=== PATIENT | male | born 1985 | race African-American/Black ===

== ENCOUNTER 2020-11-06 14:16 | Inpatient (IN) | payer OTHER ==
[2020-11-06 16:13] VITALS: BMI 23.9
[2020-11-06] MEDS ORDERED: BISMUTH SUBSALICYLATE 524 MG/30 ML UD PO PRN (19:19)
[2020-11-06] MEDS ORDERED: IBUPROFEN 400 MG TABLET (FP) PO PRN (19:19)
[2020-11-06] MEDS ORDERED: ACETAMINOPHEN 325 MG TABLET (FP) PO PRN ×2 (19:19)
[2020-11-06] MEDS ORDERED: NICOTINE POLACRILEX 2 MG GUM BUC PRN (19:19)
[2020-11-06] MEDS ORDERED: MENTHOL/PHENOL 1 EACH UD MM PRN (19:19)
[2020-11-06] MEDS ORDERED: MAGNESIUM HYDROX 2400MG/30ML ORAL SUSPENSION 30 ML CUP PO PRN (19:19)
[2020-11-06] MEDS ORDERED: MAG HYDROX/AL HYDROX/SIMETH 30 ML UNIT-DOSE CUP PO PRN (19:19)
[2020-11-06] MEDS ORDERED: chlordiazePOXIDE HCL 25 MG CAPSULE PO PRN (19:19)
[2020-11-06] MEDS ORDERED: ONDANSETRON *ODT* 4 MG TABLET SL PRN (19:19)
[2020-11-06] MEDS ORDERED: MAGNESIUM CITRATE 300 ML BOTTLE PO PRN (19:19)
[2020-11-06] MEDS ORDERED: METHOCARBAMOL 500 MG TABLET PO PRN (19:19)
[2020-11-06] MEDS ORDERED: MELATONIN 5 MG TABLETS PO SCH (22:00)
[2020-11-06] MEDS: THIAMINE HCL 100 MG TABLET (FP) PO SCH (23:08)
[2020-11-06] MEDS: chlordiazePOXIDE HCL 25 MG CAPSULE PO SCH (23:08)
[2020-11-06] MEDS: hydrOXYzine PAMOATE 25 MG CAPSULE (FP) PO SCH (23:08)
[2020-11-07] MEDS: chlordiazePOXIDE HCL 25 MG CAPSULE PO SCH ×4 (07:36→23:12)
[2020-11-07] MEDS: hydrOXYzine PAMOATE 25 MG CAPSULE (FP) PO SCH ×5 (07:38→23:11)
[2020-11-07 09:57] LABS: POTASSIUM 4.2 mmol/L (3.5-5.1)
[2020-11-07 09:59] LABS: HEMATOCRIT 37.5 % (35.4-49); HEMOGLOBIN 13.1 GM/dL (11.7-16.9); MCH 37.6 pg (25.7-33.7); MCHC 34.8 g/dl (32.0-35.9); MEAN PLT VOLUME 8.9 fl (7.5-11.1); PLATELET COUNT 214 K/MM3 (134-434); RBC 3.47 M/mm3 (4.00-5.60); RDW 13.3 % (11.9-15.9); WHITE BLOOD COUNT 4.4 K/mm3 (4.0-10.0)
[2020-11-07 10:12] LABS: CALCIUM 8.2 mg/dL (8.5-10.1)
[2020-11-07 10:13] LABS: BLOOD UREA NITROGEN 10.3 mg/dL (7-18)
[2020-11-07 10:14] LABS: ALBUMIN 2.8 g/dl (3.4-5.0)
[2020-11-07 10:16] LABS: CREATININE 0.9 mg/dL (0.55-1.3)
[2020-11-07 10:18] LABS: BILIRUBIN,TOTAL 1.1 mg/dL (0.2-1); TOT PROT 5.8 g/dl (6.4-8.2)
[2020-11-07 10:54] LABS: HIV INTERPRETATION NEGATIVE (NEGATIVE)
[2020-11-07] MEDS: PRENATAL VITAMINS W/ FOLIC ACID TABLET (FP) PO SCH (11:10)
[2020-11-07] MEDS: NICOTINE 7 MG/24 HOURS TOPICAL PATCH TD SCH (11:15)
[2020-11-07] MEDS ORDERED: SUVOREXANT 10 MG TABLET PO PRN (22:00)
[2020-11-07] MEDS: THIAMINE HCL 100 MG TABLET (FP) PO SCH (23:11)
[2020-11-08] MEDS: chlordiazePOXIDE HCL 25 MG CAPSULE PO SCH ×4 (06:09→23:09)
[2020-11-08] MEDS: hydrOXYzine PAMOATE 25 MG CAPSULE (FP) PO SCH ×5 (06:10→23:10)
[2020-11-08] MEDS: NICOTINE 7 MG/24 HOURS TOPICAL PATCH TD SCH (10:27)
[2020-11-08] MEDS: PRENATAL VITAMINS W/ FOLIC ACID TABLET (FP) PO SCH (10:28)
[2020-11-08] MEDS: THIAMINE HCL 100 MG TABLET (FP) PO SCH (23:10)
[2020-11-09] MEDS ORDERED: chlordiazePOXIDE HCL 10 MG CAPSULE PO PRN
[2020-11-09] MEDS: chlordiazePOXIDE HCL 10 MG CAPSULE PO SCH ×4 (05:27→22:26)
[2020-11-09] MEDS: hydrOXYzine PAMOATE 25 MG CAPSULE (FP) PO SCH ×5 (06:26→22:26)
[2020-11-09] MEDS: NICOTINE 7 MG/24 HOURS TOPICAL PATCH TD SCH (10:15)
[2020-11-09] MEDS: PRENATAL VITAMINS W/ FOLIC ACID TABLET (FP) PO SCH (10:15)
[2020-11-09] MEDS: THIAMINE HCL 100 MG TABLET (FP) PO SCH (22:26)
[2020-11-10] MEDS: hydrOXYzine PAMOATE 25 MG CAPSULE (FP) PO SCH ×5 (05:31→23:08)
[2020-11-10] MEDS: chlordiazePOXIDE HCL 10 MG CAPSULE PO SCH ×2 (05:31→18:05)
[2020-11-10] MEDS: NICOTINE 7 MG/24 HOURS TOPICAL PATCH TD SCH (10:46)
[2020-11-10] MEDS: PRENATAL VITAMINS W/ FOLIC ACID TABLET (FP) PO SCH (10:46)
[2020-11-10] MEDS: THIAMINE HCL 100 MG TABLET (FP) PO SCH (23:08)
[2020-11-11] MEDS ORDERED: chlordiazePOXIDE HCL 10 MG CAPSULE PO ONE (05:00)
[2020-11-11] MEDS: hydrOXYzine PAMOATE 25 MG CAPSULE (FP) PO SCH (06:55)
[2020-11-11 09:37] VITALS: BP 114/68; PULSE 84; TEMP 97.3
== END 2020-11-11 10:53 | disposition other institution (70) | DRG 775 ==
LOC: YASAS 14:16 → Y6N 17:05
PROVIDERS: ADMIT Allergy & Immunology; ATTEND Allergy & Immunology
PROC: HZ2ZZZZ Detoxification Services for Substance Abuse Treatment (ICD-10-PCS; principal; 2020-11-06)
DX: F10.230 Alcohol dependence with withdrawal, uncomplicated (principal); F12.20 Cannabis dependence, uncomplicated; F17.210 Nicotine dependence, cigarettes, uncomplicated; F19.282 Other psychoactive substance dependence with psychoactive substance-induced sleep disorder; F19.24 Other psychoactive substance dependence with psychoactive substance-induced mood disorder; F32.9 Major depressive disorder, single episode, unspecified; Z86.19 Personal history of other infectious and parasitic diseases; Z56.0 Unemployment, unspecified; Z59.0 Homelessness
CPT/HCPCS: 36415; 80053; 85027; 86593; 86780; 87389; C9803; U0003

== ENCOUNTER 2020-11-11 11:16 | Inpatient (IN) | payer OTHER ==
[2020-11-11] MEDS ORDERED: ACETAMINOPHEN 325 MG TABLET (FP) PO PRN (12:17)
[2020-11-11] MEDS ORDERED: LOPERAMIDE HCL 2 MG CAPSULE PO PRN (12:17)
[2020-11-11] MEDS ORDERED: MAG HYDROX/AL HYDROX/SIMETH 30 ML UNIT-DOSE CUP PO PRN (12:17)
[2020-11-11] MEDS ORDERED: guaiFENesin 200 MG/10 ML 10 ML UNIT-DOSE CUPS PO PRN (12:17)
[2020-11-11] MEDS ORDERED: MENTHOL/PHENOL 1 EACH UD MM PRN (12:17)
[2020-11-11] MEDS ORDERED: P-EPHED 60MG/TRIPROLIDI 2.5MG TABLET PO PRN (12:17)
[2020-11-11] MEDS ORDERED: IBUPROFEN 400 MG TABLET (FP) PO PRN (12:17)
[2020-11-11] MEDS ORDERED: MAGNESIUM CITRATE 300 ML BOTTLE PO PRN (12:17)
[2020-11-11] MEDS ORDERED: NICOTINE POLACRILEX 2 MG GUM BUC PRN (12:17)
[2020-11-11] MEDS ORDERED: MAGNESIUM HYDROX 2400MG/30ML ORAL SUSPENSION 30 ML CUP PO PRN (12:17)
[2020-11-11] MEDS: hydrOXYzine PAMOATE 25 MG CAPSULE (FP) PO PRN (21:12)
[2020-11-11] MEDS: METHOCARBAMOL 500 MG TABLET PO PRN (21:12)
[2020-11-11] MEDS: MELATONIN 5 MG TABLETS PO SCH (21:12)
[2020-11-11] MEDS: THIAMINE HCL 100 MG TABLET (FP) PO SCH (21:12)
[2020-11-12] MEDS: PRENATAL VITAMINS W/ FOLIC ACID TABLET (FP) PO SCH (09:33)
[2020-11-12] MEDS: METHOCARBAMOL 500 MG TABLET PO PRN ×2 (09:34→21:10)
[2020-11-12] MEDS: hydrOXYzine PAMOATE 25 MG CAPSULE (FP) PO PRN ×2 (09:34→21:11)
[2020-11-12] MEDS: NICOTINE 7 MG/24 HOURS TOPICAL PATCH TD SCH (09:34)
[2020-11-12] MEDS: THIAMINE HCL 100 MG TABLET (FP) PO SCH (21:10)
[2020-11-12] MEDS: MELATONIN 5 MG TABLETS PO SCH (21:10)
[2020-11-13] MEDS: METHOCARBAMOL 500 MG TABLET PO PRN (06:49)
[2020-11-13] MEDS: PRENATAL VITAMINS W/ FOLIC ACID TABLET (FP) PO SCH (10:03)
[2020-11-13] MEDS: NICOTINE 7 MG/24 HOURS TOPICAL PATCH TD SCH (10:03)
[2020-11-13] MEDS: THIAMINE HCL 100 MG TABLET (FP) PO SCH (21:44)
[2020-11-13] MEDS: MELATONIN 5 MG TABLETS PO SCH (21:44)
[2020-11-13] MEDS: hydrOXYzine PAMOATE 25 MG CAPSULE (FP) PO PRN (21:44)
[2020-11-14] MEDS: NICOTINE 7 MG/24 HOURS TOPICAL PATCH TD SCH (10:02)
[2020-11-14] MEDS: PRENATAL VITAMINS W/ FOLIC ACID TABLET (FP) PO SCH (10:03)
[2020-11-14] MEDS: METHOCARBAMOL 500 MG TABLET PO PRN (10:03)
[2020-11-14] MEDS: MELATONIN 5 MG TABLETS PO SCH (21:17)
[2020-11-14] MEDS: THIAMINE HCL 100 MG TABLET (FP) PO SCH (21:18)
[2020-11-15] MEDS: NICOTINE 7 MG/24 HOURS TOPICAL PATCH TD SCH (09:28)
[2020-11-15] MEDS: PRENATAL VITAMINS W/ FOLIC ACID TABLET (FP) PO SCH (09:28)
[2020-11-15] MEDS: hydrOXYzine PAMOATE 25 MG CAPSULE (FP) PO PRN ×2 (09:30→21:10)
[2020-11-15] MEDS: METHOCARBAMOL 500 MG TABLET PO PRN ×2 (09:30→21:10)
[2020-11-15] MEDS: METHYL SALICYLATE/MENTHOL OINT 30 GM TUBE TP SCH (21:09)
[2020-11-15] MEDS: THIAMINE HCL 100 MG TABLET (FP) PO SCH (21:10)
[2020-11-15] MEDS: MELATONIN 5 MG TABLETS PO SCH (21:10)
[2020-11-16] MEDS: METHYL SALICYLATE/MENTHOL OINT 30 GM TUBE TP SCH ×2 (09:39→21:21)
[2020-11-16] MEDS: NICOTINE 7 MG/24 HOURS TOPICAL PATCH TD SCH (09:39)
[2020-11-16] MEDS: PRENATAL VITAMINS W/ FOLIC ACID TABLET (FP) PO SCH (09:39)
[2020-11-16] MEDS: METHOCARBAMOL 500 MG TABLET PO PRN ×2 (09:40→21:21)
[2020-11-16] MEDS: hydrOXYzine PAMOATE 25 MG CAPSULE (FP) PO PRN ×2 (09:40→21:21)
[2020-11-16] MEDS: THIAMINE HCL 100 MG TABLET (FP) PO SCH (21:21)
[2020-11-16] MEDS: MELATONIN 5 MG TABLETS PO SCH (21:21)
[2020-11-17] MEDS ORDERED: MASKS NR ONE (07:01)
[2020-11-17] MEDS: PRENATAL VITAMINS W/ FOLIC ACID TABLET (FP) PO SCH (09:39)
[2020-11-17] MEDS: hydrOXYzine PAMOATE 25 MG CAPSULE (FP) PO PRN ×2 (09:39→21:13)
[2020-11-17] MEDS: METHYL SALICYLATE/MENTHOL OINT 30 GM TUBE TP SCH ×2 (09:39→21:12)
[2020-11-17] MEDS: METHOCARBAMOL 500 MG TABLET PO PRN ×2 (09:39→21:13)
[2020-11-17] MEDS: NICOTINE 7 MG/24 HOURS TOPICAL PATCH TD SCH (09:39)
[2020-11-17] MEDS: MELATONIN 5 MG TABLETS PO SCH (21:13)
[2020-11-17] MEDS: THIAMINE HCL 100 MG TABLET (FP) PO SCH (21:13)
[2020-11-18] MEDS ORDERED: PT OWN MED DRAWER 7, Y5N ONE (09:30)
[2020-11-18] MEDS: METHYL SALICYLATE/MENTHOL OINT 30 GM TUBE TP SCH ×2 (09:54→21:31)
[2020-11-18] MEDS: NICOTINE 7 MG/24 HOURS TOPICAL PATCH TD SCH (09:54)
[2020-11-18] MEDS: PRENATAL VITAMINS W/ FOLIC ACID TABLET (FP) PO SCH (09:55)
[2020-11-18] MEDS ORDERED: MASKS NR ONE (17:30)
[2020-11-18] MEDS: hydrOXYzine PAMOATE 25 MG CAPSULE (FP) PO PRN (21:29)
[2020-11-18] MEDS: MELATONIN 5 MG TABLETS PO SCH (21:29)
[2020-11-18] MEDS: METHOCARBAMOL 500 MG TABLET PO PRN (21:29)
[2020-11-18] MEDS: THIAMINE HCL 100 MG TABLET (FP) PO SCH (21:30)
[2020-11-19] MEDS: METHYL SALICYLATE/MENTHOL OINT 30 GM TUBE TP SCH ×2 (11:34→21:09)
[2020-11-19] MEDS: NICOTINE 7 MG/24 HOURS TOPICAL PATCH TD SCH (11:34)
[2020-11-19] MEDS: PRENATAL VITAMINS W/ FOLIC ACID TABLET (FP) PO SCH (11:34)
[2020-11-19] MEDS: MELATONIN 5 MG TABLETS PO SCH (21:08)
[2020-11-19] MEDS: THIAMINE HCL 100 MG TABLET (FP) PO SCH (21:09)
[2020-11-19] MEDS: hydrOXYzine PAMOATE 25 MG CAPSULE (FP) PO PRN (21:10)
[2020-11-20] MEDS: METHYL SALICYLATE/MENTHOL OINT 30 GM TUBE TP SCH ×2 (09:52→21:16)
[2020-11-20] MEDS: NICOTINE 7 MG/24 HOURS TOPICAL PATCH TD SCH (09:53)
[2020-11-20] MEDS: hydrOXYzine PAMOATE 25 MG CAPSULE (FP) PO PRN ×2 (09:53→21:16)
[2020-11-20] MEDS: PRENATAL VITAMINS W/ FOLIC ACID TABLET (FP) PO SCH (09:53)
[2020-11-20] MEDS: THIAMINE HCL 100 MG TABLET (FP) PO SCH (21:16)
[2020-11-20] MEDS: METHOCARBAMOL 500 MG TABLET PO PRN (21:16)
[2020-11-20] MEDS: MELATONIN 5 MG TABLETS PO SCH (21:16)
[2020-11-21] MEDS: hydrOXYzine PAMOATE 25 MG CAPSULE (FP) PO PRN ×2 (09:39→21:16)
[2020-11-21] MEDS: PRENATAL VITAMINS W/ FOLIC ACID TABLET (FP) PO SCH (09:39)
[2020-11-21] MEDS: METHYL SALICYLATE/MENTHOL OINT 30 GM TUBE TP SCH ×2 (09:40→21:17)
[2020-11-21] MEDS: NICOTINE 7 MG/24 HOURS TOPICAL PATCH TD SCH (09:40)
[2020-11-21] MEDS: MELATONIN 5 MG TABLETS PO SCH (21:16)
[2020-11-21] MEDS: THIAMINE HCL 100 MG TABLET (FP) PO SCH (21:16)
[2020-11-22] MEDS: NICOTINE 7 MG/24 HOURS TOPICAL PATCH TD SCH (09:49)
[2020-11-22] MEDS: METHYL SALICYLATE/MENTHOL OINT 30 GM TUBE TP SCH ×2 (09:49→21:11)
[2020-11-22] MEDS: PRENATAL VITAMINS W/ FOLIC ACID TABLET (FP) PO SCH (11:47)
[2020-11-22] MEDS: THIAMINE HCL 100 MG TABLET (FP) PO SCH (21:11)
[2020-11-22] MEDS: MELATONIN 5 MG TABLETS PO SCH (21:11)
[2020-11-22] MEDS: hydrOXYzine PAMOATE 25 MG CAPSULE (FP) PO PRN (21:11)
[2020-11-23] MEDS: NICOTINE 7 MG/24 HOURS TOPICAL PATCH TD SCH (09:22)
[2020-11-23] MEDS: PRENATAL VITAMINS W/ FOLIC ACID TABLET (FP) PO SCH (09:22)
[2020-11-23] MEDS: hydrOXYzine PAMOATE 25 MG CAPSULE (FP) PO PRN ×2 (09:22→21:05)
[2020-11-23] MEDS: METHYL SALICYLATE/MENTHOL OINT 30 GM TUBE TP SCH ×2 (09:22→21:05)
[2020-11-23] MEDS: THIAMINE HCL 100 MG TABLET (FP) PO SCH (21:04)
[2020-11-23] MEDS: MELATONIN 5 MG TABLETS PO SCH (21:05)
[2020-11-24] MEDS: METHYL SALICYLATE/MENTHOL OINT 30 GM TUBE TP SCH ×2 (11:45→21:46)
[2020-11-24] MEDS: NICOTINE 7 MG/24 HOURS TOPICAL PATCH TD SCH (11:45)
[2020-11-24] MEDS: PRENATAL VITAMINS W/ FOLIC ACID TABLET (FP) PO SCH (11:45)
[2020-11-24] MEDS: THIAMINE HCL 100 MG TABLET (FP) PO SCH (21:45)
[2020-11-24] MEDS: hydrOXYzine PAMOATE 25 MG CAPSULE (FP) PO PRN (21:45)
[2020-11-24] MEDS: MELATONIN 5 MG TABLETS PO SCH (21:45)
[2020-11-25] MEDS: PRENATAL VITAMINS W/ FOLIC ACID TABLET (FP) PO SCH (11:09)
[2020-11-25] MEDS: METHYL SALICYLATE/MENTHOL OINT 30 GM TUBE TP SCH ×2 (11:09→21:09)
[2020-11-25] MEDS: NICOTINE 7 MG/24 HOURS TOPICAL PATCH TD SCH (11:09)
[2020-11-25] MEDS: METHOCARBAMOL 500 MG TABLET PO PRN (21:08)
[2020-11-25] MEDS: MELATONIN 5 MG TABLETS PO SCH (21:08)
[2020-11-25] MEDS: THIAMINE HCL 100 MG TABLET (FP) PO SCH (21:08)
[2020-11-25] MEDS: hydrOXYzine PAMOATE 25 MG CAPSULE (FP) PO PRN (21:08)
[2020-11-26] MEDS: hydrOXYzine PAMOATE 25 MG CAPSULE (FP) PO PRN ×2 (09:24→21:56)
[2020-11-26] MEDS: PRENATAL VITAMINS W/ FOLIC ACID TABLET (FP) PO SCH (09:24)
[2020-11-26] MEDS: METHOCARBAMOL 500 MG TABLET PO PRN ×2 (09:24→21:56)
[2020-11-26] MEDS: NICOTINE 7 MG/24 HOURS TOPICAL PATCH TD SCH (09:25)
[2020-11-26] MEDS: METHYL SALICYLATE/MENTHOL OINT 30 GM TUBE TP SCH ×2 (09:25→21:57)
[2020-11-26] MEDS: THIAMINE HCL 100 MG TABLET (FP) PO SCH (21:56)
[2020-11-26] MEDS: MELATONIN 5 MG TABLETS PO SCH (21:56)
[2020-11-27] MEDS: PRENATAL VITAMINS W/ FOLIC ACID TABLET (FP) PO SCH (09:52)
[2020-11-27] MEDS: hydrOXYzine PAMOATE 25 MG CAPSULE (FP) PO PRN ×2 (09:52→21:08)
[2020-11-27] MEDS: NICOTINE 7 MG/24 HOURS TOPICAL PATCH TD SCH (09:53)
[2020-11-27] MEDS: METHYL SALICYLATE/MENTHOL OINT 30 GM TUBE TP SCH ×2 (09:53→21:10)
[2020-11-27] MEDS: METHOCARBAMOL 500 MG TABLET PO PRN ×2 (09:54→21:08)
[2020-11-27] MEDS: THIAMINE HCL 100 MG TABLET (FP) PO SCH (21:08)
[2020-11-27] MEDS: MELATONIN 5 MG TABLETS PO SCH (21:09)
[2020-11-28] MEDS: hydrOXYzine PAMOATE 25 MG CAPSULE (FP) PO PRN ×2 (09:45→22:08)
[2020-11-28] MEDS: PRENATAL VITAMINS W/ FOLIC ACID TABLET (FP) PO SCH (09:45)
[2020-11-28] MEDS: METHOCARBAMOL 500 MG TABLET PO PRN ×2 (09:46→22:08)
[2020-11-28] MEDS: NICOTINE 7 MG/24 HOURS TOPICAL PATCH TD SCH (10:15)
[2020-11-28] MEDS: METHYL SALICYLATE/MENTHOL OINT 30 GM TUBE TP SCH ×2 (10:15→22:07)
[2020-11-28] MEDS: MELATONIN 5 MG TABLETS PO SCH (22:08)
[2020-11-28] MEDS: THIAMINE HCL 100 MG TABLET (FP) PO SCH (22:08)
[2020-11-29] MEDS: PRENATAL VITAMINS W/ FOLIC ACID TABLET (FP) PO SCH (09:42)
[2020-11-29] MEDS: hydrOXYzine PAMOATE 25 MG CAPSULE (FP) PO PRN ×2 (09:42→21:14)
[2020-11-29] MEDS: METHOCARBAMOL 500 MG TABLET PO PRN ×2 (09:43→21:14)
[2020-11-29] MEDS: NICOTINE 7 MG/24 HOURS TOPICAL PATCH TD SCH (09:43)
[2020-11-29] MEDS: METHYL SALICYLATE/MENTHOL OINT 30 GM TUBE TP SCH ×2 (09:44→21:15)
[2020-11-29] MEDS: MELATONIN 5 MG TABLETS PO SCH (21:14)
[2020-11-29] MEDS: THIAMINE HCL 100 MG TABLET (FP) PO SCH (21:14)
[2020-11-30] MEDS: NICOTINE 7 MG/24 HOURS TOPICAL PATCH TD SCH (09:43)
[2020-11-30] MEDS: PRENATAL VITAMINS W/ FOLIC ACID TABLET (FP) PO SCH (09:43)
[2020-11-30] MEDS: METHYL SALICYLATE/MENTHOL OINT 30 GM TUBE TP SCH ×2 (09:44→22:10)
[2020-11-30] MEDS: hydrOXYzine PAMOATE 25 MG CAPSULE (FP) PO PRN ×2 (09:44→22:09)
[2020-11-30] MEDS: METHOCARBAMOL 500 MG TABLET PO PRN ×2 (09:44→22:09)
[2020-11-30] MEDS: MELATONIN 5 MG TABLETS PO SCH (22:10)
[2020-11-30] MEDS: THIAMINE HCL 100 MG TABLET (FP) PO SCH (22:10)
[2020-12-01] MEDS ORDERED: MASKS NR ONE (07:26)
[2020-12-01] MEDS: PRENATAL VITAMINS W/ FOLIC ACID TABLET (FP) PO SCH (09:59)
[2020-12-01] MEDS: METHOCARBAMOL 500 MG TABLET PO PRN ×2 (10:00→21:27)
[2020-12-01] MEDS: hydrOXYzine PAMOATE 25 MG CAPSULE (FP) PO PRN ×2 (10:00→21:27)
[2020-12-01] MEDS: NICOTINE 7 MG/24 HOURS TOPICAL PATCH TD SCH (10:00)
[2020-12-01] MEDS: METHYL SALICYLATE/MENTHOL OINT 30 GM TUBE TP SCH ×2 (10:00→21:24)
[2020-12-01] MEDS: MELATONIN 5 MG TABLETS PO SCH (21:24)
[2020-12-01] MEDS: THIAMINE HCL 100 MG TABLET (FP) PO SCH (21:24)
[2020-12-02 08:21] VITALS: BP 137/73; PULSE 74; TEMP 97.9
== END 2020-12-02 08:50 | disposition home or self-care (01) | DRG 772 ==
LOC: YASAS 11:16 → Y5N 11:17 → Y3W 12-01 12:59
PROVIDERS: ADMIT Allergy & Immunology; ATTEND Allergy & Immunology
PROC: HZ42ZZZ Group Counseling for Substance Abuse Treatment, Cognitive-Behavioral (ICD-10-PCS; principal; 2020-11-11)
DX: F10.20 Alcohol dependence, uncomplicated (principal); F12.20 Cannabis dependence, uncomplicated; F32.9 Major depressive disorder, single episode, unspecified; Z86.19 Personal history of other infectious and parasitic diseases; Z59.0 Homelessness
CPT/HCPCS: C9803; U0003